=== PATIENT | male | born 1955 | race Caucasian/White ===

== ENCOUNTER → 2019-11-21 | Outpatient (CLI) | payer MEDICARE, OTHER ==
[~2019-11-21] MED LIST: KEFLEX500 MG PO; MOTRIN800 MG PO
== END | disposition home or self-care (01) ==
LOC: RAD 15:46
DX: M25.711 Osteophyte, right shoulder (principal)

== ENCOUNTER → 2019-12-15 | Outpatient (CLI) | payer MEDICARE | END | disposition home or self-care (01) | LOC: MRI 09:38 | DX: M25.511 Pain in right shoulder (principal) ==

== ENCOUNTER 2020-08-01 18:14 | Emergency (ER) | payer MEDICARE ==
[~2020-08-01] VITALS: Ht 175.2 cm; Wt 117.9 kg
[2020-08-01] MEDS ORDERED: AUGMENTIN 875875 MG PO (20:14)
== END 2020-08-01 20:40 | disposition home or self-care (01) ==
LOC: ED 18:14
DX: S81.852A Open bite, left lower leg, initial encounter (principal); W54.0XXA Bitten by dog, initial encounter; Y93.89 Activity, other specified; Y92.89 Other specified places as the place of occurrence of the external cause; Y99.8 Other external cause status

== ENCOUNTER → 2024-02-14 | Outpatient (CLI) | payer OTHER ==
[~2024-02-14] MED LIST changes: +AMLODIPINE BESY10 MG PO; +AUGMENTIN 875875 MG PO; +DILTIAZEM HCL120 M2 PO; +ELIQUIS5 M1 PO; +ZESTRIL10 MG PO
== END | disposition home or self-care (01) ==
LOC: EDBD → RESCLI 02:36
PROVIDERS: ATTEND Student in an Organized Health Care Education/Training Program
DX: I48.91 Unspecified atrial fibrillation (principal); I10 Essential (primary) hypertension; Z79.01 Long term (current) use of anticoagulants; Z87.891 Personal history of nicotine dependence; Z79.899 Other long term (current) drug therapy

== ENCOUNTER → 2024-05-21 | Outpatient (CLI) | payer OTHER ==
[~2024-05-21] MED LIST changes: +CARDIZEM CD180 MG PO; +Regadenoson 0.4 MG/5 ML SYR IV ONE; +Technetium Tc 99M Tetrofosmi 0.23 MG KIT IJ SCH
== END | disposition home or self-care (01) ==
LOC: CARD 02:03
PROVIDERS: ATTEND Internal Medicine Cardiovascular Disease
DX: R06.02 Shortness of breath (principal)